=== PATIENT | male | born 1955 | race Caucasian/White ===

== ENCOUNTER → 2017-04-29 | Outpatient (REF) ==
--- NOTE | 2017-04-29 14:46 | REP ---
LEFT KNEE, FIVE VIEWS: Five views of the left knee performed. There is no fracture or dislocation. There is mild medial joint space narrowing with subchondral sclerosis. Slight patellofemoral compartment narrowing and subchondral sclerosis laterally. There is a tiny spur of the superior pole of the patella. IMPRESSION: Very mild degenerative changes. Signed by Sebastián Birmingham MD 04/30/2017 04:46 P
== END ==
LOC: M SMT 14:14
PROVIDERS: ATTEND Internal Medicine
DX: Z02.9 Encounter for administrative examinations, unspecified (principal)